=== PATIENT | female | born 1965 | race Caucasian/White ===

== ENCOUNTER 2018-03-15 10:57 | Outpatient (RCR) | payer OTHER, SELFPAY | END 2018-03-25 23:59 | LOC: NS 10:57 | PROVIDERS: Family Provider Family Medicine; PCP Family Medicine; Visit Provider Family Medicine | DX: E66.9 Obesity, unspecified (principal); Z68.21 Body mass index [BMI] 21.0-21.9, adult; Z71.3 Dietary counseling and surveillance | CPT/HCPCS: 97802 ==

== ENCOUNTER 2018-04-12 08:50 | Outpatient (RCR) | payer OTHER, SELFPAY | END 2018-04-25 23:59 | LOC: NS 08:50 | PROVIDERS: Family Provider Family Medicine; PCP Family Medicine; Visit Provider Family Medicine | DX: E66.9 Obesity, unspecified (principal); Z68.21 Body mass index [BMI] 21.0-21.9, adult; Z71.3 Dietary counseling and surveillance | CPT/HCPCS: 97802; 97803 ==

== ENCOUNTER 2018-04-26 09:26 | Outpatient (RCR) | payer OTHER, SELFPAY | END 2018-05-25 23:59 | LOC: NS 09:26 | PROVIDERS: Family Provider Family Medicine; PCP Family Medicine; Visit Provider Family Medicine | DX: E66.9 Obesity, unspecified (principal); Z68.21 Body mass index [BMI] 21.0-21.9, adult; Z71.3 Dietary counseling and surveillance | CPT/HCPCS: 97803 ==

== ENCOUNTER 2018-06-21 09:32 | Outpatient (RCR) | payer OTHER, SELFPAY | END 2018-06-25 23:59 | LOC: NS 09:32 | PROVIDERS: Family Provider Family Medicine; PCP Family Medicine; Visit Provider Family Medicine | DX: E66.9 Obesity, unspecified (principal); Z68.21 Body mass index [BMI] 21.0-21.9, adult; Z71.3 Dietary counseling and surveillance | CPT/HCPCS: 97803 ==

== ENCOUNTER 2018-07-26 09:30 | Outpatient (RCR) | payer OTHER, SELFPAY | END 2018-07-26 23:59 | LOC: NS 09:30 | PROVIDERS: Family Provider Family Medicine; PCP Family Medicine; Visit Provider Family Medicine | DX: E66.9 Obesity, unspecified (principal); Z68.21 Body mass index [BMI] 21.0-21.9, adult; Z71.3 Dietary counseling and surveillance | CPT/HCPCS: 97803 ==

== ENCOUNTER 2018-08-23 08:18 | Outpatient (RCR) | payer OTHER, SELFPAY | END 2018-08-25 23:59 | LOC: NS 08:18 | PROVIDERS: Family Provider Family Medicine; PCP Family Medicine; Visit Provider Family Medicine | DX: E66.9 Obesity, unspecified (principal); Z68.21 Body mass index [BMI] 21.0-21.9, adult; Z71.3 Dietary counseling and surveillance | CPT/HCPCS: 97803 ==

== ENCOUNTER 2018-09-13 10:00 | Outpatient (RCR) | payer OTHER, SELFPAY | END 2018-09-25 23:59 | LOC: NS 10:00 | PROVIDERS: Family Provider Family Medicine; PCP Family Medicine; Referring Provider Family Medicine; Visit Provider Family Medicine | DX: E66.9 Obesity, unspecified (principal); Z68.21 Body mass index [BMI] 21.0-21.9, adult; Z71.3 Dietary counseling and surveillance | CPT/HCPCS: 97803 ==

== ENCOUNTER 2018-09-27 10:20 | Outpatient (RCR) | payer OTHER, SELFPAY | END 2018-10-25 23:59 | LOC: NS 10:20 | PROVIDERS: Family Provider Family Medicine; PCP Family Medicine; Referring Provider Family Medicine; Visit Provider Family Medicine | DX: E66.9 Obesity, unspecified (principal); Z68.29 Body mass index [BMI] 29.0-29.9, adult; Z71.3 Dietary counseling and surveillance | CPT/HCPCS: 97803 ==

== ENCOUNTER 2018-11-01 09:34 | Outpatient (RCR) | payer OTHER, SELFPAY | END 2018-11-01 11:47 | disposition home or self-care (01) | LOC: NS 09:34 | PROVIDERS: Family Provider Family Medicine; PCP Family Medicine; Referring Provider Family Medicine; Visit Provider Family Medicine | DX: E66.9 Obesity, unspecified (principal); Z68.29 Body mass index [BMI] 29.0-29.9, adult; Z71.3 Dietary counseling and surveillance | CPT/HCPCS: 97803 ==

== ENCOUNTER 2019-01-03 07:25 | Day surgery (SDC) | payer OTHER, SELFPAY ==
[2019-01-03] VITALS (12 sets, daily range): BP systolic 90–121; BP diastolic 64–103; PULSE 61–79; RESP 16–18; TEMP 36.3–36.9; O2SAT 97–100; BMI 27.9
--- NOTE | 2019-01-03 08:53 | PCM.HP.STD ---
Problem List (1) Screening for intestinal cancer Status: Acute History of Present Illness Date of Admission: 01/03/19 The patient is a 53 year old F rating for intestinal cancer. She has never had a previous colonoscopy. No current symptoms. No bright red blood per rectum or melena. She enjoys good health. There is no family history of colon cancer. She has a sister who developed ulcerative colitis in her college years. Past Medical History Allergies No Known Allergies Allergy (Verified 12/30/18 15:31) Home Medications: Ambulatory Orders Medication Instructions Recorded Zolpidem Tartrate [Ambien 5 mg PO QHS PRN PRN 12/30/18 (Generic)] Smoking Status: Never smoker Review of Systems Constitutional: Denies: Anorexia HEENT: Denies: Difficulty Swallowing Cardiovascular: Denies: Chest Pain Respiratory: Denies: Cough Gastrointestinal: Denies: Abdominal Pain, Hematochezia Endocrine: Denies: Change in Body Habitus VTE Information - Inpt Only VTE Present on Admission: No Patient Problems: Active and Suspected Problems Screening for intestinal cancer (Acute) - Physical Exam General: Alert, Oriented x3, Cooperative, No apparent distress HEENT: Atraumatic Oral: Moist Mucosa Lungs: Clear to auscultation Cardiovascular: Regular rate, Regular Rhythm Abdomen: Bowel Sounds Present, Soft, Non Tender Psych/Mental Status: Normal Affect Vital Signs Temp Pulse Resp BP Pulse Ox 98.5 F 75 16 104/65 97 01/03/19 07:45 01/03/19 07:45 01/03/19 07:45 01/03/19 07:45 01/03/19 07:45 Oxygen Delivery Method Room Air Weight: 148 lb Body Mass Index (BMI) 27.9 Assessment/Plan All Active Problems Screening for intestinal cancer (Acute) I am recommending the patient a colonoscopy with possible biopsy or polypectomy as indicated. She is aware of the technique, benefits, risks and alternatives. She has had an opportunity to ask and have questions answered. She presents via our open access program. We will proceed as noted. Yohan Sanchez M.D., F.A.C.S.
--- NOTE | 2019-01-03 09:19 | OP.ENDO_ITS ---
Patient Name: Reanna Suarez Procedure Date: 01/03/2019 8:43 AM Date of : 1965 Age: 53 Procedure: Colonoscopy Indications: Screening for colorectal malignant neoplasm Providers: Yohan Sanchez MD Referring MD: Yohan Sanchez MD Medicines: Midazolam 4 mg IV, Meperidine 100 mg IV Patient Profile: Last Colonoscopy: none. The patient's first colonoscopy is today. Complications: No immediate complications. Procedure: Pre-Anesthesia Assessment: - Prior to the procedure, a History and Physical was performed, and patient medications and allergies were reviewed. The patient's tolerance of previous anesthesia was also reviewed. The risks and benefits of the procedure and the sedation options and risks were discussed with the patient. All questions were answered, and informed consent was obtained. Prior Anticoagulants: The patient has taken no previous anticoagulant or antiplatelet agents. ASA Grade Assessment: II - A patient with mild systemic disease. After reviewing the risks and benefits, the patient was deemed in satisfactory condition to undergo the procedure. After I obtained informed consent, the scope was passed under direct vision. Throughout the procedure, the patient's blood pressure, pulse, and oxygen saturations were monitored continuously. The Colonoscope was introduced through the anus and advanced to the cecum, identified by appendiceal orifice and ileocecal valve. The colonoscopy was performed without difficulty. The patient tolerated the procedure well. The quality of the bowel preparation was excellent. The ileocecal valve and the appendiceal orifice were photographed. Moderate Sedation: Moderate (conscious) sedation was personally administered by the endoscopist. The following parameters were monitored: oxygen saturation, heart rate, blood pressure, and response to care. Total physician intraservice time was 15 minutes. Scope In: 9:01:22 AM Scope Withdrawal Time 0 hours 6 minutes 29 seconds Scope Out: 9:14:57 AM Total Procedure Duration Time 0 hours 13 minutes 35 seconds Findings: Hemorrhoids were found on perianal exam. A few diverticula were found in the sigmoid colon. The exam was otherwise without abnormality. Impression: - Hemorrhoids found on perianal exam. - Diverticulosis in the sigmoid colon. - The examination was otherwise normal. - No specimens collected. Recommendation: - Discharge patient to home. - Resume previous diet. - Continue present medications. - Repeat colonoscopy in 10 years for screening purposes. Procedure Code(s): --- Professional --- 51079, Colonoscopy, flexible; diagnostic, including collection of specimen(s) by brushing or washing, when performed (separate procedure) 21844, 59, Moderate sedation services provided by the same physician or other qualified health life care planner performing the diagnostic or therapeutic service that the sedation supports, requiring the presence of an independent trained observer to assist in the monitoring of the patient's level of consciousness and physiological status; initial 15 minutes of intraservice time, patient age 5 years or older Diagnosis Code(s): --- Professional --- Z12.11, Encounter for screening for malignant neoplasm of colon K64.9, Unspecified hemorrhoids K57.30, Diverticulosis of large intestine without perforation or abscess without bleeding CPT copyright 2017 [employer]. All rights reserved. The codes documented in this report are preliminary and upon lawn care technician review may be revised to meet current compliance requirements. Yohan Sanchez MD 01/03/2019 9:18:41 AM This report has been signed electronically. Number of Addenda: 0 Note Initiated On: 01/03/2019 8:43 AM
== END 2019-01-03 10:54 | disposition home or self-care (01) ==
LOC: EN 07:28 → AC 07:29
PROVIDERS: Family Provider Family Medicine; PCP Family Medicine; Referring Provider Surgery; Visit Provider Surgery
PROC: 0DJD8ZZ Inspection of Lower Intestinal Tract, Via Natural or Artificial Opening Endoscopic (ICD-10-PCS; CPT 45378; principal; 2019-01-03 08:25)
DX: Z12.11 Encounter for screening for malignant neoplasm of colon (principal); K64.9 Unspecified hemorrhoids; K57.30 Diverticulosis of large intestine without perforation or abscess without bleeding
CPT/HCPCS: 45378; 99152; 99153; J7120

== ENCOUNTER → 2019-03-07 14:04 | Outpatient (CLI) | payer OTHER, SELFPAY ==
[2019-01-03 07:45] VITALS: BMI 27.9
[2019-03-12 12:54] LABS: HPV Reflexed? NOT INDICATED
== END ==
PROVIDERS: Visit Provider Obstetrics & Gynecology
DX: Z12.4 Encounter for screening for malignant neoplasm of cervix (principal)
CPT/HCPCS: 88175; G0145

== ENCOUNTER → 2020-12-10 12:19 | Outpatient (CLI) | payer OTHER, SELFPAY ==
[2019-01-03 07:45] VITALS: BMI 27.9
--- NOTE | 2020-12-10 12:22 | BI_ITS ---
MAMMOGRAPHY - BILATERAL SCREENING REASON FOR EXAM: Female, 55 years old. Routine annual screening examination. PERTINENT HISTORY: Aunt with breast cancer. TECHNIQUE: Digital bilateral breast jennifer (3D mammographic acquisition) in the CC and MLO projections. 2-D mediolateral oblique (MLO) and craniocaudad (CC) views of both breasts were obtained. CAD: Full Field Digital Mammography with Computer Added Detection was performed. COMPARISON: Comparison is made with prior outside examination of 07/28/2016. FINDINGS: Breast Composition: The breasts are heterogeneously dense, which may obscure small masses. There are no dominant masses or suspicious calcifications. No other significant abnormalities are identified. There has been no significant change since the prior study. BI/SCRN MAMM (CAD)W/JENNIFER BILAT IMPRESSION: Stable bilateral screening mammogram. Yearly follow-up mammogram recommended. (A) ASSESSMENT CATEGORY: BIRADS Category 1: Negative. A letter regarding these results will be sent to the patient by the facility within 30 days. Approximately 10% of breast cancers are not detected by mammography. A normal mammogram should not delay biopsy of a clinically suspicious abnormality. [id number] Electronically Signed: Drew Gaming, at 13:46 EST , Service support ,
== END ==
PROVIDERS: PCP Family Medicine; Referring Provider Obstetrics & Gynecology; Visit Provider Obstetrics & Gynecology
DX: Z12.31 Encounter for screening mammogram for malignant neoplasm of breast (principal)
CPT/HCPCS: 77063; 77067

== ENCOUNTER → 2021-07-01 10:30 | Outpatient (CLI) | payer OTHER, SELFPAY ==
[2019-01-03 07:45] VITALS: BMI 27.9
[2021-07-01 12:06] LABS: Erythrocyte Sedimentation Rate < 1 mm/hr (0-30)
[2021-07-01 12:08] LABS: Absolute Lymphocyte Count 1.48 X10^3/uL (0.83-4.51); Absolute Neutrophil Count 2.6 X10^3/uL (2.0-7.7); Basophil# 0.04 X10^3/uL; Basophil% 0.9 % (0-1); Eosinophil# 0.03 X10^3/uL; Eosinophils% 0.7 % (0-5); Hematocrit 42.2 % (37-47); Hemoglobin 14.2 g/dL (12.0-15.0); Lymphocyte # 1.48 X10^3/ul (0.83-4.51); Lymphocyte % 32.2 % (19-41); Mean Corp Hgb Conc 33.6 g/dL (32-36); Mean Platelet Vol. 9.8 fl (6.2-12.0); Monocyte# 0.44 X10^3/uL; Monocyte% 9.6 % (0-10); NRBC Flagged by Analyzer 0 % (0-5); Neutrophil # 2.59 X10^3/uL (2.7-7.7); Neutrophil % 56.4 % (47-70); Platelet Count 253 K/mm3 (150-450); RBC Distribution Width CV 12.2 % (11.6-14.6); RBC Distribution Width SD 40.2 fl (35.1-43.9); Red Blood Count 4.74 M/mm3 (4.2-5.4); White Blood Count 4.6 K/mm3 (4.4-11.0)
[2021-07-01 12:27] LABS: ALB/GLOB Ratio 1.3 RATIO (0.9-2.4); AST(SGOT) 13 U/L (15-37); Alanine Aminotransfer ALT/SGPT 22 U/L (13-56); Albumin, Serum 4.2 g/dL (3.2-5.0); Alkaline Phosphatase 48 U/L (45-117); Anion Gap 7 (5-15); BUN 16 mg/dL (7-18); BUN/Creat Ratio 18.9 RATIO (10-20); Calcium,Total 9.1 mg/dL (8.5-10.1); Chloride 102 mmol/L (98-107); Cholesterol 218 mg/dL (200); Creatinine, Serum 0.85 mg/dL (0.55-1.02); EST Glomerular Filtration Rate 74 mL/min (>60); Est Glom Filt Rate - Afr Amer 90 mL/min (>60); Globulin 3.2 g/dL (2.2-4.2); Glucose 88 mg/dL (74-106); High Density Lipoprotein 66 mg/dL; Potassium 4.1 mmol/L (3.5-5.1); Protein, Total 7.4 g/dL (6.4-8.2); Sodium Level 137 mmol/L (136-145); Thyroid Stim Hormone (TSH) 1.01 uIU/mL (0.358-3.74); Triglycerides 66 mg/dL; Very Low Density Lipoprotein 13 mg/dL (5-40)
== END ==
PROVIDERS: PCP Family Medicine; Visit Provider Family Medicine
DX: Z00.00 Encounter for general adult medical examination without abnormal findings (principal); R63.4 Abnormal weight loss
CPT/HCPCS: 36415; 80053; 80061; 84443; 85025; 85652

== ENCOUNTER → 2022-05-04 | Outpatient (CLI) | payer BC, SELFPAY ==
--- NOTE | 2022-05-04 10:24 | MRI_ITS ---
STUDY: MRI CERVICAL SPINE WITHOUT CONTRAST REASON FOR EXAM: Female, 56 years old. neuritis, loss of function L index finger TECHNIQUE: Standardized fat and water weighted pulse sequences were obtained in the sagittal and axial planes. COMPARISON: X-ray 04/14/2022 FINDINGS: Normal foramen magnum and brainstem-cervical cord junction. Normal craniovertebral junction. Normal anterior atlantoaxial articulation. Normal odontoid process. Normal cervical lordosis. Normal vertebral bodies and posterior osseous elements. C2-3: Normal endplates. Normal disc height, signal and morphology. Normal central canal and intervertebral neural foramina. C3-4: 2 mm retrolisthesis of C3 on C4 with a mild broad disc osteophyte complex produces moderate spinal stenosis with abutment of the central spinal cord and moderate bilateral neural foraminal stenosis. C4-5: Moderate broad disc osteophyte complex produces moderate spinal stenosis with abutment of the central spinal cord and moderate bilateral neural foraminal stenosis. C5-6: Moderate bilobed disc osteophyte complex produces moderate spinal stenosis with abutment of the right hemicord, moderate right neural foraminal stenosis and mild left neural foraminal stenosis. C6-7: Mild broad disc osteophyte complex produces mild spinal stenosis and mild bilateral neural foraminal stenosis. C7-T1: Mild broad disc osteophyte complex produces mild spinal stenosis and mild bilateral neural foraminal stenosis. Normal cervical cord. Normal visualized soft tissue structures. MRI/Spine Cervical (Routine) IMPRESSION: Multilevel degenerative changes, as described above. Electronically Signed: Medardo Dover MD at 12:21 EDT ,
== END | disposition home or self-care (01) ==
PROVIDERS: PCP Family Medicine; Visit Provider Orthopaedic Surgery
DX: M79.2 Neuralgia and neuritis, unspecified (principal)
CPT/HCPCS: 72141

== ENCOUNTER → 2022-05-08 | Outpatient (CLI) | payer BC, SELFPAY ==
--- NOTE | 2022-05-08 16:07 | NEURO_ITS ---
NCS and/or EMG Patient Report Ordering Doctor: Martin Sin DATE OF SERVICE: 05/08/22 Indication: Left hand weakness for approximately 6 weeks. Symptoms began with a sharp pain between the shoulder blades that would radiate down the left upper extremity. Since that time the pain has improved. No clearly associated sensory disturbance. Findings: Nerve conduction studies were performed in the left upper extremity. The left median motor study recording the abductor pollicis brevis showed a reduced amplitude, normal distal latency and normal conduction velocity. The left ulnar motor study recording the abductor digiti minimi showed a reduced amplitude, normal distal latency and normal conduction velocity. No conduction block or focal slowing was present across the elbow. The left median sensory response recording digit two showed a normal amplitude, latency and conduction velocity. The left ulnar sensory response recording digit five showed a normal amplitude, latency and conduction velocity. The left radial sensory response recording over the extensor snuff box showed a normal amplitude, latency and conduction velocity. As the sensory symptoms of a C8-T1 radiculopathy are similar to those of ulnar neuropathy and lower trunk brachial plexopathy, additional studies were performed to help exclude these. The left medial antebrachial cutaneous sensory response showed a normal amplitude and conduction velocity. Needle EMG of the left upper extremity and cervical paraspinal muscles was performed. Active denervation was seen in abductor pollicis brevis muscle. Insertional activity in the abductor digiti minimi was increased. All motor unit morphology and activation patterns were normal. Recruitment was markedly reduced in the abductor pollicis brevis and slightly reduced in the abductor digiti minim. Impression: This is an abnormal study, but somewhat limited study. There are electro physiologic findings most consistent with a subacute, left, C8/T1 radiculopathy preferentially affecting the fascicles destined to the median nerve distribution. The normal sensory responses would also favor an intraspinal localization. The lack of active denervation in the paraspinal muscles is unusual, but could be explained by a lesion sparing the dorsal ramus of the ventral root. Clinical and/or radiographic correlation is recommended. Finally, there is no evidence of a superimposed median or ulnar entrapment neuropathy in the left upper extremity. Chivo Chapman D.O. Multi Select Codes Neurology Neurology Interp Codes: 08409-84 Musc test done w/n test comp (interp) and 35354-66 Nrv cndj test 7-8 studies (interp)
== END | disposition home or self-care (01) ==
LOC: PSN 14:13
PROVIDERS: PCP Family Medicine; Referring Provider Orthopaedic Surgery; Visit Provider Orthopaedic Surgery
DX: M79.2 Neuralgia and neuritis, unspecified (principal)
CPT/HCPCS: 95886; 95910

== ENCOUNTER 2022-06-28 13:30 | Outpatient (RCR) | payer BC, SELFPAY ==
--- NOTE | 2022-04-10 08:33 | HP.OTEVAL ---
Patient's Visit Information EMA SMITH is a 56 year old F, referred to Occupational Therapy by Dr. Pretty Cleveland MD, with a diagnosis of Left shoulder pain. Date of Evaluation: 04/07/22 Occupational Therapist: Karina Dumont, OTR/L, CHT - Subjective Pt. is a 56 y/o female who arrived for L UE arm pain and numbness. Pt. reported that she did not do anything out of the ordinary the day before pain started. Started bothering her Sunday03-20-22, 2 weeks ago. Used a heating pad and could not function, saw on 03-21-22 felt coming out of her trap/cervical area, L finger not working correctly. She was prescribed neurotin, has taken some. Pt. reporting that she used compensatory strategies, but arm function is still not where it should be. Dr. Rodriguez referred pt. to Dr. Sin. - ADLs Kitchen: Open jars Household: Vacuum, Laundry Yard: Mow lawn Comments: uses a push mower Comments: Pt. reporting she has been using compensatory strategies with daily tasks and that she is R hand dominant. 2 handed tasks have been affected. recovering from knee surgery. son & pt. doing yard work. pt. going on vacation around . - Pain Left Elbow 0 Pain Intensity Range: 7 - ROM Shoulder: B WFL Elbow: B WFL Forearm: B WFL ROM Comments: All ROM is WFL. Can complete finger opposition - Strength Shoulder: R 20.5# L 15.3# Elbow: R 16.4# L 14.4# Wrist: R 11.4# L 8.6# Supportive Employment Case Manager: R 55.5# L 20# Lateral Pinch: R 12# L4# Tripod Pinch: R 12# L 3# Tip-to-Tip Pinch: R 6# L 0# Strength Comments: Used the Mini FET for strength testing. L side has notable deficits - Sensation Thumb: L & R 3.22 Index: L 2.83 R 3.22 Middle: L & R 2.83 Ring: R 2.83 L 3.22 Little: L & R 3.22 Sensation Comments: pt. reported some numbness in L hand & that her L hand feels cold some of the time. - Nine Hole Peg Right: 22.40 Left: 36.23 Comments: L hand was 14 seconds slower than right hand - Special Tests Elbow Flexion Test - Cubital Tunnel: negative - Quick DASH-Disab of Arm,Shoulder& Hand Quick DASH Score: 47.7250 - Goals Goal:: Pt. will increase L wrist strength from 8.6# to 10# to increase independence with sticker operator by dc. Pt. to increase L pinch (lateral, tripod, pinch) strength by 4# to increase independence with FM tasks during ADL's by dc. pt will demo a increase in left campus wellness coordinator by 20# or greater by d/c to increase functional strength for ADls and IADLS. Goal:: Pt. to improve with 9-hole peg test by 10 seconds (from 36.23 to 26) to increase indep with meal prep tasks by dc. Goal:: Pt. to verbalize use of 3 ergonomic/body worker changes for proper lifting and carrying of objects by dc. Goal:: Pt. to improve independence with UB/LB dressing using both hands by dc. - Rehabilitation General Assessment: Pt. has a diagnosis of Left shoulder pain from Dr. Cleveland. Pt. reported that her pain started Sunday03-20-22, 2 weeks ago in her trap/cervical area, L fingers not working correctly. Pt. reporting that she been using compensatory strategies. CHT educated pt. on the radial nerve, location, and what it does. S/OT provided pt. with radial nerve glides HEP. Pt. has L handed weakness in campus wellness coordinator and pinch, decreased indep with 2 handed tasks and vacuuming & laundry. Benefit from skilled OT services 2x a week for 6 weeks to improve strength and decrease numbness. Pt. Demo'd understanding & agreeable to POC. Therapy session was directly supervised and doc. reviewed and approved by Karina Dumont OTR/L,CHT Rehabilitation Potential: Good - Anticipated Interventions A/AAROM/PROM, Strengthening, Joint Protection/Energy Conservation, Ergonomic Education, Home Program Other Interventions: provided pt. with radial nerve glides (reviewed and demonstrated). CHT educated pt. on radial nerve. - Visit Plan Frequency: 2x /Week Duration: 6 Weeks TEXT: Thank you for the opportunity to evaluate your patient. For Medicare and Medicare HMO plans, please review the plan of care and approve it. It will need to be FAXED BACK to us at [phone] for Medicare purposes. Please let me know if there are questions or concerns regarding this plan of care. Physician Signature: Date:
--- NOTE | 2022-06-28 15:55 | OTREVAL_ITS ---
Dr. Pretty Cleveland MD, It has been my pleasure to treat EMA SMITH over the last 3 visits for Left shoulder pain. Please see the progress note below for an update on the occupational therapy plan of care! Subjective: Pt states Dr. Rodriguez feels she should continue with her OT to get some strength back- pt reports compliance with her HEP but feels no change - had her nerve conduction study completed in April and asked this therapist to review the records- therapist did so- Objective/Function: L 25# retail loss prevention investigator, noted increase wrist extension to get the motion. L lat 0#. L tripod 0#. L tip 0#. Decline in strength in L hand since her initial eval - even with pts diligently working with her arm and hand-. EMG report/impression reviewed- appears involvement around C8/T1 and would benefit from PT for further assessment- this therapist conversed with physical therapy and did state this would be appropriate referral to them. if no changes with objective pt would benefit from further testing/evaluations neurologist etc. Plan Plan: EMG IMPRSSION pulled off study 05/08/22 please see detailed report in pts records. This is an abnormal study, but somewhat limited study. There are electrophysiologic findings most consistent with a subacute, left, C8/T1 radiculopathy preferentially affecting the fascicles destined to the median nerve distribution. The normal sensory responses would also favor an intraspinal localization. The lack of active denervation in the paraspinal muscles is unusual, but could be explained by a lesion sparing the dorsal ramus of the ventral root. Clinical and/or radiographic correlation is recommended. Finally, there is no evidence of a superimposed median or ulnar entrapment neuropathy in the left upper extremity. As EMG indicates no evidence of a superimposed median or ulnar entrapment neuropathy in left UE. rec'd Physical Therapy at this time to address C8/T1 regions- Pt does states in February she did wake up with pain in her neck region and the gave her medication that did help-and shortly after this noticed the weakness and continues to get weak. pt will cont. with forearm strengthening as able and finger ROM /strengthening as able. pt can contact OT anytime for new exercise- pt demo with questionable rehab potential- if needed custom splint to stabilize thumb and or adaptive equipment. Goals - Goals Patient Goals: Regain Strength, Decrease Pain, Improve Fine Motor Skills, Use Hand/Wrist/Arm Normally Again, Be More Independent in ADLS, Resume Former Household Responsibilities (Cooking,Cleaning,Yard, etc.) Goal:: Pt. will increase L wrist strength from 8.6# to 10# to increase independence with motor coach tour operator by dc. Pt. to increase L pinch (lateral, tripod, pinch) strength by 4# to increase independence with FM tasks during ADL's by dc. pt will demo a increase in left retail loss prevention investigator by 20# or greater by d/c to increase functional strength for ADls and IADLS. Goal:: Pt. to improve with 9-hole peg test by 10 seconds (from 36.23 to 26) to increase indep with meal prep tasks by dc. Goal:: Pt. to verbalize use of 3 ergonomic/body shop supervisor changes for proper lifting and carrying of objects by dc. Goal:: Pt. to improve independence with UB/LB dressing using both hands by dc. Anticipated Interventions Anticipated Interventions: A/AAROM/PROM, Strengthening, Joint Protection/Energy Conservation, Ergonomic Education, Home Program Other Interventions: provided pt. with radial nerve glides (reviewed and demonstrated). CHT educated pt. on radial nerve. Please do not hesitate to contact me at [phone] by phone or if you have questions or concerns regarding this new plan of care! Sincerely, Karina Dumont OTR/L, CHT
--- NOTE | 2022-09-27 12:52 | HP.OTDCSUM_ITS ---
It has been my pleasure to treat EMA SMITH under orders from Dr. Pretty Cleveland MD, for the diagnosis of Left shoulder pain for a total of 3 visit(s). Please see the following information for a summary of their discharge status. Objective/Function: L 25# masonry teacher, noted increase wrist extension to get the motion. L lat 0#. L tripod 0#. L tip 0#. Decline in strength in L hand since her initial eval - even with pts diligently working with her arm and hand-. EMG report/impression reviewed- appears involvement around C8/T1 and would benefit from PT for further assessment- this therapist conversed with physical therapy and did state this would be appropriate referral to them. if no changes with objective pt would benefit from further testing/evaluations neurologist etc. Patient Goals: Regain Strength, Decrease Pain, Improve Fine Motor Skills, Use Hand/Wrist/Arm Normally Again, Be More Independent in ADLS, Resume Former Household Responsibilities (Cooking,Cleaning,Yard, etc.) Goal:: Pt. will increase L wrist strength from 8.6# to 10# to increase independence with scientific publications editor by dc. Pt. to increase L pinch (lateral, tripod, pinch) strength by 4# to increase independence with FM tasks during ADL's by dc. pt will demo a increase in left masonry teacher by 20# or greater by d/c to increase functional strength for ADls and IADLS. Goal:: Pt. to improve with 9-hole peg test by 10 seconds (from 36.23 to 26) to increase indep with meal prep tasks by dc. Goal:: Pt. to verbalize use of 3 ergonomic/assembler body changes for proper lifting and carrying of objects by dc. Goal:: Pt. to improve independence with UB/LB dressing using both hands by dc. Plan: EMG IMPRSSION pulled off study 05/08/22 please see detailed report in pts records. This is an abnormal study, but somewhat limited study. There are electrophysiologic findings most consistent with a subacute, left, C8/T1 radiculopathy preferentially affecting the fascicles destined to the median nerve distribution. The normal sensory responses would also favor an intraspinal localization. The lack of active denervation in the paraspinal muscles is unusual, but could be explained by a lesion sparing the dorsal ramus of the ventral root. Clinical and/or radiographic correlation is recommended. Finally, there is no evidence of a superimposed median or ulnar entrapment neuropathy in the left upper extremity. As EMG indicates no evidence of a superimposed median or ulnar entrapment neuropathy in left UE. rec'd Physical Therapy at this time to address C8/T1 regions- Pt does states in February she did wake up with pain in her neck region and the drZachary gave her medication that did help-and shortly after this noticed the weakness and continues to get weak. pt will cont. with forearm strengthening as able and finger ROM /strengthening as able. pt can contact OT anytime for new exercise- pt demo with questionable rehab potential- if needed custom splint to stabilize thumb and or adaptive equipment. If there are questions or concerns regarding this patient's occupational therapy, please fell free to call me at [phone]. Thank you for the referral of this patient. Sincerely, Karina Dumont, ALBAR/L, CHT
== END 2022-06-28 19:00 | disposition home or self-care (01) ==
LOC: OT 13:30
PROVIDERS: PCP Family Medicine; Referring Provider Family Medicine; Visit Provider Family Medicine
DX: M25.512 Pain in left shoulder (principal)
CPT/HCPCS: 97110; 97166; 97530

== ENCOUNTER 2023-07-06 17:50 | Outpatient (CLI) | payer BC, SELFPAY ==
[2023-07-13 10:13] LABS: HPV HC, High Risk Negative
== END 2023-07-06 23:59 | disposition home or self-care (01) ==
LOC: LABSPEC 17:51
PROVIDERS: PCP Family Medicine; Visit Provider Family Medicine
DX: Z12.4 Encounter for screening for malignant neoplasm of cervix (principal)
CPT/HCPCS: 87624; 88175; G0145

== ENCOUNTER → 2023-08-15 | Outpatient (CLI) | payer BC, SELFPAY ==
--- NOTE | 2023-08-15 09:13 | BI_ITS ---
MAMMOGRAPHY - BILATERAL SCREENING REASON FOR EXAM: Female, 57 years old. Routine annual screening examination. PERTINENT HISTORY: Aunt with breast cancer. TECHNIQUE: Digital bilateral breast jennifer (3D mammographic acquisition) in the CC and MLO projections. 2-D mediolateral oblique (MLO) and craniocaudad (CC) views of both breasts were obtained. CAD: Full Field Digital Mammography with Computer Added Detection was performed. COMPARISON: Comparison is made with prior study dated December 10, 2020 and April 02, 2014. FINDINGS: Breast Composition: The breasts are heterogeneously dense, which may obscure small masses. There are no dominant masses or suspicious calcifications. Stable benign appearing bilateral axillary lymph nodes. No other significant abnormalities are identified. There has been no significant change since the prior study. BI/SCRN MAMM (CAD)W/JENNIFER BILAT IMPRESSION: Stable bilateral screening mammogram. Yearly follow-up mammogram recommended. (A) ASSESSMENT CATEGORY: BIRADS Category 2: Benign. A letter regarding these results will be sent to the patient by the facility within 30 days. Approximately 10% of breast cancers are not detected by mammography. A normal mammogram should not delay biopsy of a clinically suspicious abnormality. [id number] Electronically Signed: Drew Gaming MD at 11:24 EDT ,
== END | disposition home or self-care (01) ==
LOC: OPBI 09:12
PROVIDERS: PCP Family Medicine; Referring Provider Family Medicine; Visit Provider Family Medicine
DX: Z12.31 Encounter for screening mammogram for malignant neoplasm of breast (principal)
CPT/HCPCS: 77063; 77067

== ENCOUNTER → 2024-08-08 | Outpatient (CLI) | payer BC, SELFPAY ==
[2024-08-08 10:22] LABS: Absolute Lymphocyte Count 1.41 X10^3/uL (0.83-4.51); Absolute Neutrophil Count 2.4 X10^3/uL (2.0-7.7); Basophil# 0.04 X10^3/uL; Basophil% 0.9 % (0-1); Eosinophil# 0.04 X10^3/uL; Eosinophils% 0.9 % (0-5); Lymphocyte # 1.41 X10^3/ul (0.83-4.51); Lymphocyte % 33.1 % (19-41); Mean Corpuscular Hgb 30.4 pg (27.0-32.0); Mean Platelet Vol. 9.6 fl (6.2-12.0); Monocyte# 0.39 X10^3/uL; Monocyte% 9.2 % (0-10); NRBC Flagged by Analyzer 0 % (0-5); Neutrophil # 2.38 X10^3/uL (2.7-7.7); Neutrophil % 55.9 % (47-70); Platelet Count 205 K/mm3 (150-450); RBC Distribution Width SD 38.4 fl (35.1-43.9); White Blood Count 4.3 K/mm3 (4.4-11.0)
[2024-08-08 11:35] LABS: Anion Gap 5 (5-15); BUN 15 mg/dL (7-18); BUN/Creat Ratio 17.9 RATIO (10-20); Calcium,Total 9.2 mg/dL (8.5-10.1); Chloride 107 mmol/L (98-107); Cholesterol 225 mg/dL (200); Creatinine, Serum 0.84 mg/dL (0.55-1.02); EST Glomerular Filtration Rate 74 mL/min (>60); Est Glom Filt Rate - Afr Amer 90 mL/min (>60); Glucose 97 mg/dL (74-106); High Density Lipoprotein 56 mg/dL; Sodium Level 138 mmol/L (136-145); Triglycerides 129 mg/dL; Very Low Density Lipoprotein 26 mg/dL (5-40)
== END | disposition home or self-care (01) ==
LOC: MTLAB 08:17
PROVIDERS: PCP Family Medicine; Referring Provider Registered Nurse; Visit Provider Registered Nurse
DX: R53.83 Other fatigue (principal)
CPT/HCPCS: 36415; 80048; 80061; 84443; 85025

== ENCOUNTER → 2025-06-12 | Outpatient (CLI) | payer BC, SELFPAY ==
--- NOTE | 2025-06-12 16:24 | RAD_ITS ---
PROCEDURE: CERV SPINE 2 OR 3 VIEWS 06/12/2025 REASON FOR EXAM: CERIVCAL TECHNIQUE: CERV SPINE 2 OR 3 VIEWS COMPARISON: Cervical spine x-ray dated 04/14/2022 and cervical spine MRI dated 05/04/2022. FINDINGS: Diffuse osteopenia of the cervical spine is noted. Mild degenerative changes of the cervical spine are noted. There is 2 mm of retrolisthesis of C3 in relationship to C4. There is 3 mm of retrolisthesis of C4 in relationship to C5. There is 2 mm of retrolisthesis of C5 in relationship to C6. There is disc space narrowing involving the C3-C4, C4-C5, C5-C6, C6-C7 and C7-T1 disc spaces. There is a decrease in height of the anterior aspect of the C7 vertebral body by approximately 3% which is a stable finding. This is compatible with a probable osteoporotic compression fracture. The dens and lateral masses are somewhat obscured by normal overlapping anatomical structures. The visualized portions appear unremarkable. RAD/Cerv Spine 2 or 3 Views IMPRESSION: Degenerative disc disease is seen involving the C3-C4, C4-C5, C5-C6, C6-C7 and C7-T1 disc spaces. Stable decrease in height of the anterior aspect of the C7 vertebral body by ap proximately 3%. Reading Location: [id number]
[2025-06-12 17:52] LABS: Hematocrit 41.7 % (37-47); Hemoglobin 14.3 g/dL (12.0-15.0); Immature Granulocytes Count 0.020 X10^3/uL (0.0-0.0); Mean Corp Hgb Conc 34.3 g/dL (32-36); Mean Corpuscular Volume 87.2 fL (81-99); Mean Platelet Vol. 9.8 fl (6.2-12.0); NRBC Flagged by Analyzer 0 % (0-5); Platelet Count 267 K/mm3 (150-450); RBC Distribution Width CV 12.3 % (11.6-14.6); RBC Distribution Width SD 39.2 fl (35.1-43.9); Red Blood Count 4.78 M/mm3 (4.2-5.4); White Blood Count 8.3 K/mm3 (4.4-11.0)
[2025-06-12 18:49] LABS: AST(SGOT) 18 U/L (<=31); Alanine Aminotransfer ALT/SGPT 13 U/L (<=34); Albumin, Serum 4.6 g/dL (3.5-5.0); Alkaline Phosphatase 63 U/L (35-104); Anion Gap 12 (5-15); BUN 18 mg/dL (4-19); BUN/Creat Ratio 20.2 RATIO (10-20); Calcium,Total 9.7 mg/dL (7.6-11.0); Carbon Dioxide 24.1 mmol/L (21.0-32.0); Chloride 102 mmol/L (98-108); Globulin 2.5 g/dL (2.2-4.2); Glucose 83 mg/dL (70-99); Potassium 4.0 mmol/L (3.3-5.1); Vitamin B12 581 pg/mL (180-914); Vitamin D,25 Hydroxy 19.0 ng/mL (30-100)
== END | disposition home or self-care (01) ==
LOC: MTLAB 16:22
PROVIDERS: PCP Family Medicine; Referring Provider Family Medicine; Visit Provider Family Medicine
DX: M54.12 Radiculopathy, cervical region (principal); R53.83 Other fatigue
CPT/HCPCS: 36415; 72040; 80053; 82306; 82607; 84439; 84443; 85025

== ENCOUNTER → 2025-09-25 | Outpatient (CLI) | payer BC, SELFPAY | END | disposition home or self-care (01) | LOC: SL 12:59 | PROVIDERS: PCP Family Medicine; Referring Provider Nurse Practitioner Family; Visit Provider Nurse Practitioner Family | DX: G47.10 Hypersomnia, unspecified (principal) | CPT/HCPCS: 95806 ==

== ENCOUNTER → 2025-10-23 | Outpatient (CLI) | payer BC, SELFPAY ==
--- OUTSIDE RECORDS SUMMARY | 2025-10-23 13:55 | XMS RPT_ITS | CCD ---
Author Organization [facility] CliniSywa Care Team Providers Care Environmental Health Aide Name Role Phone Dr. Pretty Cleveland Primary Care Provider Dr. Pretty Cleveland Referring Provider [phone] Dr. Yohan Hansen Attending Provider Dr. Martin Sin Attending Provider Dr. Cleveland Guerrero Attending Provider Dr. Martin Sin Referring Provider [phone] Martin Sin Other Provider [phone] Prem Chapman Attending Provider Dr. Pretty Cleveland Primary Care Provider Dr. Pretty Cleveland Referring Provider Dr. Martin Sin Attending Provider Dr. Praneeth Mcmahon MD Primary Care Provider [phone] Lisandro HELM, Dr. Praneeth Gustafson Attending Provider Lisandro HELM, Dr. Praneeth Gustafson Referring Provider [phone] James SNOW TECHNICIAN-CChristina Attending Provider Praneeth Mcmahon Primary Care Unavailable Christina Ramirez Attending Unavailable Christina Ramirez Referring Unavailable Praneeth Mcmahon Referring Unavailable Praneeth Mcmahon Primary Care Unavailable Praneeth Mcmahon Attending Unavailable Praneeth Mcmahon Attending Unavailable Praneeth Mcmahon Referring Unavailable Praneeth Mcmahon Primary Care Unavailable Pretty Cleveland Primary Care Unavailable Cristofer Pretty S Referring Unavailable Brandon Irby Attending Unavailable Praneeth Mcmaohn Referring Unavailable Christina Ramirez Attending Unavailable Praneeth Mcmahon Primary Care Unavailable Medications Current Medications Medication Drug Class(es) Dates Sig (Normalized) Sig (Original) acetaminophen 500 mg oral tablet (7 sources) Start: 04-14-2022 take 2 tablets by mouth every six hours as needed Acetaminophen (Tylenol Extra Strength) 500 mg tablet Active 1000 mg PO EVERY 6 HOURS as needed April 14, 2022 12:00am cetirizine hydrochloride 10 mg oral tablet (1 source) Histamine-1 Receptor Antagonist Start: 07-31-2025 take 1 tablet by mouth once daily Cetirizine (Zyrtec) 10 mg tablet Active 10 mg PO daily July 31, 2025 12:00am FLUoxetine 20 mg oral capsule (7 sources) Serotonin Reuptake Inhibitor Start: 04-14-2022 Fluoxetine 20 mg capsule Active NMA PO April 14, 2022 12:00am Start: 04-14-2022 Fluoxetine Act armando CAP PO April 14, 2022 12:00am gabapentin 100 mg oral capsule (20 sources) Anti-epileptic Agent Start: 04-14-2022 End: 05-10-2022 take 1-3 capsules by mouth three times daily as needed Gabapentin 100 mg capsule Active 0 PO .COMPLEX May 10, 2022 9:19am 1-3 caps by mouth tid as needed Start: 04-14-2022 End: 05-10-2022 Gabapentin 100 mg capsule Di scontinued NMA PO April 14, 2022 12:00am May 10, 2022 9:19am ibuprofen 200 mg oral tablet (7 sources) Nonsteroidal Anti-inflammatory Drug Start: 04-14-2022 take 2 tablets by mouth every six hours as needed Ibuprofen (Advil) 200 mg tablet Active 400 mg PO EVERY 6 HOURS as needed April 14, 2022 12:00am zolpidem tartrate 10 mg oral tablet (8 sources) gamma-Aminobutyric Acid-ergic Agonist Start: 07-31-2025 take 5 mg by mouth at bedtime Zolpidem 10 mg tablet Active 5 mg PO AT BEDTIME July 31, 2025 12:00am Start: 12-30-2018 End: 07-31-2025 take 1 tablet by mouth at bedtime as needed for sleep Zolpidem 5 MG tablet Discontinued 5 mg PO AT BEDTIME NEEDED as needed for Sleep December 30, 2018 1:00am July 31, 2025 1:02pm Completed/Discontinued Medications Medication Drug Class(es) Dates Sig (Normalized) Sig (Original) amoxicillin 875 mg / clavulanate 125 mg oral tablet (2 sources) Penicillin-class Antibacterial Start: 10-31-2024 End: 11-10-2024 Amoxicillin-Pot Clavulanate 875-125 mg tablet Discontinued 1 {tbl} PO Q12H 20 10 0 October 31, 2024 1:00am November 09, 2024 1:00am November 10, 2024 1:08am Acute sinusitis, unspecified tobramycin 3 mg/ml ophthalmic solution (2 sources) Aminoglycoside Antibacterial Start: 02-11-2024 End: 07-31-2025 Tobramycin 0.3 % drops Discontinued 1 NMA OPHTHALMIC Q2H 5 0 February 11, 2024 12:00am July 31, 2025 1:02pm to affected eye while awake first 24 hours, then 3x/day on days 2-5 Problems Problem Classification Problem Date Documented Date Episodic/Chronic Inflammation; infection of eye (except that caused by tuberculosis or sexually transmitteddisease) (2 sources) Unspecified acute conjunctivitis, bilateral; Translations: [Acute conjunctivitis of both eyes] 02-11-2024 Episodic Mood disorders (6 sources) Depressive disorder; Translations: [Depression] 05-10-2022 Chronic Other connective tissue disease (7 sources) Pain in left arm; Translations: [Pain in left arm] 04-14-2022 Episodic Other connective tissue disease (7 sources) Inflammatory neuropathy ; Translations: [Neuralgia and neuritis, unspecified] 04-14-2022 Episodic Other connective tissue disease (2 sources) Pain in left arm; Translations: [Pain in limb] Episodic Other connective tissue disease (4 sources) Neuralgia and neuritis, unspecified; Translations: [Neuralgia, neuritis, and radiculitis, unspecified] Episodic Other lower respiratory disease (7 sources) Cough; Translations: [Cough] 08-04-2021 Episodic Other screening for suspected conditions (not mental disorders or infectious disease) (7 sources) Patient encounter status; Translations: [Encounter for screening for malignant neoplasm of intestinal tract, unspecified] 01-03-2019 Episodic Other upper respiratory infections (2 sources) Acute sinusitis; Translations: [Acute sinusitis, unspecified] 10-31-2024 Episodic Residual codes; unclassified (2 sources) Daytime hypersomnia; Translations: [Hypersomnia, unspecified] 08-07-2025 Chronic Comment on above: STOP BANG= Residual codes; unclassified (1 source) Hypersomnia, unspecified; Translations: [Hypersomnia, unspecified] Onset: 09-25-2025 Chronic Spondylosis; intervertebral disc disorders; other back problems (2 sources) Radiculopathy, cervical region; Translations: [Radiculopathy, cervical region] Onset: 06-16-2025 Episodic Results Test Name Value Interpretation Reference Range Facility Pulmonary Visit Reporton Pulmonary Visit Report [facility] [place] [address] [place] [address] OFFICE VISIT Date of Service: 08/07/25 MR#: [id number] Acct: [id number] Name: REANNA SMITH Rep #: [id number] : 1965 Provider: Christina Ramirez NP Age/Sex: 59/F Location[place] [facility] Status: Signed Assessment and Plan Assessment and Plan (1) Daytime hypersomnia: Status: Acute Comment: STOP BANG= 3 Plan: The pathophysiology of sleep apnea was discussed with patient today. She is at high risk for sleep disordered breathing. I believe that these events could be occurring in REM sleep versus supine positioning due to the clusters of desaturations seen on the recent nocturnal oximetry. I have recommended an in lab sleep study at this time due to the risk for sleep apnea and the nocturnal hypoxemia that has been identified. Due to the patient's history of intermittent insomnia I have recommended that she utilize Sonata 5 mg as needed for the night of the sleep testing. If the patient should need this medication then the junior technical writer should perform a mini neuro evaluation prior to releasing the patient in the morning. The patient will follow-up in this practice in a 3-month interval and at that time we will have completed the sleep study and if positive will have been set up on PAP therapy and use the device so that a compliance download and her response to therapy can be reviewed on the follow-up. The patient is agreeable to this plan. All questions were answered today. Follow-up will need to be advanced if there is absence of sleep disordered breathing on the study. (2) Nocturnal hypoxemia: Status: Acute Plan: Nocturnal hypoxemia is present in the absence of known pulmonary disease. I highly suspect that this is due to sleep disordered breathing and have recommended a PSG. If the patient is found to have sleep apnea then a nocturnal pulse oximetry should be repeated once she has been set up on therapy to ensure that she has a adequate oxygenation status throughout the night with treatment. (3) Insomnia: Status: Acute Qualifiers: Insomnia type: unspecified Qualified Code(s): G47.00 - Insomnia, unspecified Plan: I discussed the correlation between insomnia and sleep disordered breathing. Await set up with PAP therapy if sleep testing suggest sleep disordered breathing and determine if this improves insomnia. Stimulus control techniques were discussed, specifically getting out of bed if it has been 30 minutes and she has not been able to fall asleep in going to a quiet location where she can read or perform a quiet activity until she becomes tired and then return to the bed. Orders: Orders Polysomnography Today G47.10 - Hypersomnia, unspecified Plan This note was generated with [employer] software. It may contain incorrect words, spelling, and punctuation that were not noted in checking the note before signing. Plan Details Follow Up: 3 Months (LMR) HPI HPI Comments Details: Patient is a 59-year-old female who presents today to establish for concerns for sleep disordered breathing. She is ambulatory and currently on room air. Her PCP is Dr. Mcmahon. She did undergo a nocturnal oximetry June 25, 2025 which showed an average saturation of 92.9% but there were 22 minutes below 88% and this did occur in clusters. Her father from emphysema in June 2024. Her paternal grandmother had emphysema. She has not history of chronic bronchitis or pneumonia. She is a lifelong non-smoker. There is no family history of sleep apnea. She does have a history of intermittent insomnia. She does have Ambien that she uses as needed through the years. She reports that she has difficulty with sleep onset specifically. Occasionally she will have an active mind but other times that is not present. She does utilize caffeine and will consume 2 to 3 cups for the entire day up until 1 to 2 PM. 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 She awakens with headaches. She does take a nap 3-4 days a week. She has been less tired in the past month since she has begun a walking regimen with her . Mood is controlled. STOP-BANG Assessment: 1. Do you snore? [Y] 2. Are you frequently tired during the day? [Y] 3. Have you been observed gasping or choking while asleep? [N] 4. Do you have high blood pressure? [N] 5. BMI - greater than 35kg/m2? [N] 6. Age - over 50 years old? [Y] 7. Neck Circumference - greater than 37 cm for females or 40 cm for males? [36cm, N] 8. Gender - male? [N] Total STOP-BANG score = [3] which indicates [high] risk for obstructive sleep apnea (yes to 3 or more questions = high risk of sleep apnea). Intake Vital Signs 10/31/24 12:02 08/07/25 06:21 Height 5 ft 1 in 5 ft 1 in Weight: 153 lb BMI 28.9 BP 103/68 (more content not included)... Normal [facility] Absolute lymphocyte countOrd ered By: Praneeth Mcmahon on 06-12-2025 Lymphocytes Auto (Unsp spec) [#/Vol] 2.29 10*3/uL 0.83-4.51 [facility] Absolute neutrophil countOrd ered By: Praneeth Mcmahon on 06-12-2025 Neutrophils (Bld) [#/Vol] 5.3 10*3/uL 2.0-7.7 [facility] Anion gap in Serum or Plasma Ordered By: Praneeth Mcmahon on 06-12-2025 Anion gap [Moles/Vol] 12 mmol/L 5-15 [facility] Automated lymphocyte count a s percentage of total leukocytesOrdered By: Praneeth Mcmahon on 06-12-2025 Lymphocytes/100 WBC Auto (Unsp spec) 27.7 % 19-41 [facility] BUN/creatinine ratioOrdered By: Praneeth Mcmahon on 06-12-2025 Urea nitrogen/Creatinine [Mass ratio] 20.2 mg/mg High 10-20 [facility] Basophil percentageOrdered B y: Praneeth Mcmahon on 06-12-2025 Basophils/100 WBC (Bld) 0.7 % 0-[address] [facility] Bilirubin, totalOrdered By: Praneeth Mcmahon on 06-12-2025 Bilirubin [Mass/Vol] 0.19 mg/dL 0.00-1.30 [facility] CBC W/Diff, Automatedon 05-26 Absolute Lymph 2.29 X10 3/uL Normal 0.83-4.51 [facility] Comment on above: Order Comment: Order Date: 06/12/25 Order Info: 0184-1 - CBCD Performed By: #### L 500.4050, L506.0400, L100.0100, [id number] #### [facility] Laboratory [address] [place], [address] Absolute Neut 5.3 X10 3/uL Normal 2.0-7.7 [facility] Comment on above: Order Comment: Order Date: 06/12/25 Order Info: 018- - CBCD Performed By: #### L 500.4050, L506.0400, L100.0100, [id number] #### [facility] [address] [place], [address] Basophils/100 WBC (Bld) 0.7 % Normal 0-[address] [facility] Comment on above: Order Comment: Order Date: 06/12/25 Order Info: 018-1 - CBCD Performed By: #### L 500.4050, L506.0400, L100.0100, [id number] #### [facility] [address] [place], [address] Eosinophils/100 WBC (Bld) 0.6 % Normal 0-5 [facility] Comment on above: Order Comment: Order Date: 06/12/25 Order Info: 0184-1 - CBCD Performed By: #### L 500.4050, L506.0400, L100.0100, [id number] #### [facility] [address] [place], [address] Erythrocyte distribution width (RBC) [Ratio] 12.3 % Normal 11.6-14.6 [facility] Comment on above: Order Comment: Order Date: 06/12/25 Order Info: 0184-1 - CBCD Performed By: #### L 500.4050, L506.0400, L100.0100, [id number] #### [facility] [address] [place], [address] Hematocrit (Bld) [Volume fraction] 41.7 % Normal 37-47 [facility] Comment on above: Order Comment: Order Date: 06/12/25 Order Info: 0184- - CBCD Performed By: #### L 500.4050, L506.0400, L100.0100, [id number] #### [facility] [address] [place], [address] Hemoglobin (Bld) [Mass/Vol] 14.3 g/dL Normal 12.0-15.0 [facility] Comment on above: Order Comment: Order Date: 06/12/25 Order Info: 0184- - CBCD Performed By: #### L 500.4050, L506.0400, L100.0100, [id number] #### [facility] [address] [place], [address] IG% 0.200 Normal 0.0-0.9 [facility] Comment on above: Order Comment: Order Date: 06/12/25 Order Info: 0184-1 - CBCD Result Comment: IG% - Immature Granulocytes (promyelocytes, myelocytes and metamyelocytes) > 1% indicates that a LEFT SHIFT is Present. Performed By: #### L 500.4050, L506.0400, L100.0100, [id number] #### [facility] [address] [place], [address] Lymphocytes/100 WBC (Bld) 27.7 % Normal 19-41 [facility] Comment on above: Order Comment: Order Date: 06/12/25 Order Info: 0184- - CBCD Performed By: #### L 500.4050, L506.0400, L100.0100, [id number] #### [facility] [address] [place], [address] MCH (RBC) [Entitic mass] 29.9 pg Normal 27.0-32.0 [facility] Comment on above: Order Comment: Order Date: 06/12/25 Order Info: 0184-1 - CBCD Performed By: #### L 500.4050, L506.0400, L100.0100, [id number] #### [facility] [address] [place], [address] MCHC (RBC) [Mass/Vol] 34.3 g/dL Normal 32-36 [facility] Comment on above: Order Comment: Order Date: 06/12/25 Order Info: 0184- - CBCD Performed By: #### L 500.4050, L506.0400, L100.0100, [id number] #### [facility] [address] [place], [address] MCV (RBC) [Entitic vol] 87.2 fL Normal 81-99 [facility] Comment on above: Order Comment: Order Date: 06/12/25 Order Info: 0184- - CBCD Performed By: #### L 500.4050, L506.0400, L100.0100, [id number] #### [facility] [address] [place], [address] Monocytes/100 WBC (Bld) 7.1 % Normal 0-10 [facility] Comment on above: Order Comment: Order Date: 06/12/25 Order Info: 0184-1 - CBCD Performed By: #### L 500.4050, L506.0400, L100.0100, [id number] #### [facility] [address] [place], [address] Neutrophils/100 WBC (Bld) 63.7 % Normal 47-70 [facility] Comment on above: Order Comment: Order Date: 06/12/25 Order Info: 0184-1 - CBCD Performed By: #### L 500.4050, L506.0400, L100.0100, L501.9520 #### [facility] [address] [place], [address] Nucleated RBC (Bld) [#/Vol] 0 10*3/uL Normal 0-5 [facility] Comment on above: Order Comment: Order Date: 06/12/25 Order Info: 0184-1 - CBCD Performed By: #### L 500.4050, L506.0400, L100.0100, L501.9520 #### [facility] [address] [place], [address] Platelet mean volume (Bld) [Entitic vol] 9.8 fL Normal 6.2-12.0 [facility] Comment on above: Order Comment: Order Date: 06/12/25 Order Info: 0184- - CBCD Performed By: #### L 500.4050, L506.0400, L100.0100, L501.9520 #### [facility] [address] [place], [address] Platelets (Bld) [#/Vol] 267 10*3/uL Normal 150-450 [facility] Comment on above: Order Comment: Order Date: 06/12/25 Order Info: 0184-1 - CBCD Performed By: #### L 500.4050, L506.0400, L100.0100, L501.9520 #### [facility] [address] [place], [address] RBC (Bld) [#/Vol] 4.78 10*6/uL Normal 4.2-5.4 [facility] Comment on above: Order Comment: Order Date: 06/12/25 Order Info: 0184-1 - CBCD Performed By: #### L 500.4050, L506.0400, L100.0100, L501.9520 #### [facility] [address] [place], [address] RDW SD 39.2 fl Normal 35.1-43.9 [facility] Comment on above: Order Comment: Order Date: 06/12/25 Order Info: 0184-1 - CBCD Performed By: #### L 500.4050, L506.0400, L100.0100, L501.9520 #### [facility] [address] [place], [address] WBC (Bld) [#/Vol] 8.3 10*3/uL Normal 4.4-11.0 [facility] Comment on above: Order Comment: Order Date: 06/12/25 Order Info: 0184-1 - CBCD Performed By: #### L 500.4050, L506.0400, L100.0100, L501.9520 #### [facility] [address] [place], [address] Carbon dioxide, total [Moles /volume] in Central venous bloodOrdered By: Praneeth Mcmahon on 06-12-2025 CO2 [Moles/Vol] 24.1 mmol/L 21.0-32.0 [facility] Cerv Spine 2 or 3 Viewson Cerv Spine 2 or 3 Views [facility] [address] [place] [address] Cerv Spine 2 or 3 Views MR#: [id number] Acct: [id number] Name: REANNA SMITH Rep #: [id number] : 1965 F 59 From: Ag[facility] Yan PCP: Dr. Praneeth Mcmahon MD Status: REG CLI Study: Cerv Spine 2 or 3 Views Date of Exam: 06/12/25 Exam# [id number] Ordering Dr: Praneeth Mcmahon MD PROCEDURE: CERV SPINE 2 OR 3 VIEWS 06/12/2025 REASON FOR EXAM: CERIVCAL TECHNIQUE: CERV SPINE 2 OR 3 VIEWS COMPARISON: Cervical spine x-ray dated 04/14/2022 and cervical spine MRI dated 05/04/2022. FINDINGS: Diffuse osteopenia of the cervical spine is noted. Mild degenerative changes of the cervical spine are noted. There is 2 mm of retrolisthesis of C3 in relationship to C4. There is 3 mm of retrolisthesis of C4 in relationship to C5. There is 2 mm of retrolisthesis of C5 in relationship to C6. There is disc space narrowing involving the C3-C4, C4-C5, C5-C6, C6-C7 and C7-T1 disc spaces. There is a decrease in height of the anterior aspect of the C7 vertebral body by approximately 3% which is a stable finding. This is compatible with a probable osteoporotic compression fracture. The dens and lateral masses are somewhat obscured by normal overlapping anatomical structures. The visualized portions appear unremarkable. RAD/Cerv Spine 2 or 3 Views IMPRESSION: Degenerative disc disease is seen involving the C3-C4, C4-C5, C5-C6, C6-C7 and C7-T1 disc spaces. Stable decrease in height of the anterior aspect of the C7 vertebral body by approximately 3%. Reading Location: [facility] CC: Dr. Praneeth Mcmahon MD [employer] Hand: Signed Normal [facility] Chloride assayOrdered By: Debra Mcmahon on 06-12-2025 Chloride [Moles/Vol] 102 mmol/L 98-108 [facility] Comprehensive Metabolic Prof ilon 06-12-2025 Albumin [Mass/Vol] 4.6 g/dL Normal 3.5-5.0 [facility] Comment on above: Order Comment: Order Date: 06/12/25 Order Info: 0786-1 - CMP Order Info: 3016-3 - TSH Order Info: 3024-7 - T4F Performed By: #### L 500.4050, L506.0400, L100.0100, L501.9520 #### [facility] [address] [place], [place], [id number] Albumin/Globulin [Mass ratio] 1.9 {ratio} Normal 0.9-2.4 [facility] Comment on above: Order Comment: Order Date: 06/12/25 Order Info: 0786-1 - CMP Order Info: 6-3 - TSH Order Info: 3024-7 - T4F Performed By: #### L 500.4050, L506.0400, L100.0100, L501.9520 #### [facility] [address] [place], [address] ALK PHOS 63 U/L Normal 35-104 [facility] Comment on above: Order Comment: Order Date: 06/12/25 Order Info: 785-1 - CMP Order Info: 3 - TSH Order Info: 3024-7 - T4F Performed By: #### L 500.4050, L506.0400, L100.0100, L501.9520 #### [facility] [address] [place], [address] ALT [Catalytic activity/Vol] 13 U/L Normal <=34 [facility] Comment on above: Order Comment: Order Date: 06/12/25 Order Info: 07-1 - CMP Order Info: 6-3 - TSH Order Info: 3024-7 - T4F Performed By: #### L 500.4050, L506.0400, L100.0100, L501.9520 #### [facility] [address] [place], [address] AST [Catalytic activity/Vol] 18 U/L Normal <=31 [facility] Comment on above: Order Comment: Order Date: 06/12/25 Order Info: 0786-1 - CMP Order Info: 6-3 - TSH Order Info: 3024-7 - T4F Performed By: #### L 500.4050, L506.0400, L100.0100, L501.9520 #### [facility] [address] [place], [address] Bilirubin [Mass/Vol] 0.19 mg/dL Normal 0.00-1.30 [facility] Comment on above: Order Comment: Order Date: 06/12/25 Order Info: 0786-1 - CMP Order Info: 6-3 - TSH Order Info: 3024-7 - T4F Performed By: #### L 500.4050, L506.0400, L100.0100, L501.9520 #### [facility] [address] [place], [address] BUN/CRE 20.2 RATIO High 10-20 [facility] Comment on above: Order Comment: Order Date: 06/12/25 Order Info: 0786-1 - CMP Order Info: 6-3 - TSH Order Info: 3024-7 - T4F Performed By: #### L 500.4050, L506.0400, L100.0100, L501.9520 #### [facility] [address] [place], [address] Calcium [Mass/Vol] 9.7 mg/dL Normal 7.6-11.0 [facility] Comment on above: Order Comment: Order Date: 06/12/25 Order Info: 07-1 - CMP Order Info: 3016-3 - TSH Order Info: 3024-7 - T4F Performed By: #### L 500.4050, L506.0400, L100.0100, L501.9520 #### [facility] [address] [place], [address] Chloride [Moles/Vol] 102 mmol/L Normal 98-108 [facility] Comment on above: Order Comment: Order Date: 06/12/25 Order Info: 0786-1 - CMP Order Info: 6-3 - TSH Order Info: 3024-7 - T4F Performed By: #### L 500.4050, L506.0400, L100.0100, L501.9520 #### [facility] [address] [place], [address] CO2 [Moles/Vol] 24.1 mmol/L Normal 21.0-32.0 [facility] Comment on above: Order Comment: Order Date: 06/12/25 Order Info: 785-1 - CMP Order Info: 3015-3 - TSH Order Info: 3024-7 - T4F Performed By: #### L 500.4050, L506.0400, L100.0100, L501.9520 #### [facility] [address] [place], [address] Creatinine [Mass/Vol] 0.90 mg/dL Normal 0.70-1.20 [facility] Comment on above: Order Comment: Order Date: 06/12/25 Order Info: 785-11 - CMP Order Info: 3 - TSH Order Info: 7 - T4F Performed By: #### L 500.4050, L506.0400, L100.0100, L501.9520 #### [facility] [address] [place], [address] GAP 12 Normal 5-15 [facility] Comment on above: Order Comment: Order Date: 06/12/25 Order Info: 785-11 - CMP Order Info: 3 - TSH Order Info: 7 - T4F Performed By: #### L 500.4050, L506.0400, L100.0100, L501.9520 #### [facility] [address] [place], [address] GFR/1.73 sq M.predicted among non-blacks MDRD (S/P/Bld) [Vol rate/Area] 74 mL/min/{1.73_m2} Normal >60 [facility] Comment on above: Order Comment: Order Date: 06/12/25 Order Info: 0786-1 - CMP Order Info: 3016-3 - TSH Order Info: 3024-7 - T4F Result Comment: mL/m in/1.73m2 CKD-EPI Creatinine Equation (2020) Performed By: #### L 500.4050, L506.0400, L100.0100, L501.9520 #### [facility] [address] [place], [address] Globulin (S) [Mass/Vol] 2.5 g/dL Normal 2.2-4.2 [facility] Comment on above: Order Comment: Order Date: 06/12/25 Order Info: 0786-1 - CMP Order Info: 3 - TSH Order Info: 3027 - T4F Performed By: #### L 500.4050, L506.0400, L100.0100, L501.9520 #### [facility] [address] [place], [address] Glucose [Mass/Vol] 83 mg/dL Normal 70-99 [facility] Comment on above: Order Comment: Order Date: 06/12/25 Order Info: 0786- - CMP Order Info: 3 - TSH Order Info: 7 - T4F Performed By: #### L 500.4050, L506.0400, L100.0100, L501.9520 #### [facility] [address] [place], [address] Potassium [Moles/Vol] 4.0 mmol/L Normal 3.3-5.1 [facility] Comment on above: Order Comment: Order Date: 06/12/25 Order Info: 0786- - CMP Order Info: 3 - TSH Order Info: 3024-7 - T4F Performed By: #### L 500.4050, L506.0400, L100.0100, L501.9520 #### [facility] [address] [place], [address] Sodium [Moles/Vol] 138 mmol/L Normal 133-145 [facility] Comment on above: Order Comment: Order Date: 06/12/25 Order Info: 0786-1 - CMP Order Info: 3 - TSH Order Info: 3024-7 - T4F Performed By: #### L 500.4050, L506.0400, L100.0100, L501.9520 #### [facility] [address] [place], [address] T PROT 7.1 g/dL Normal 5.9-8.4 [facility] Comment on above: Order Comment: Order Date: 06/12/25 Order Info: 0786-1 - CMP Order Info: 3016-3 - TSH Order Info: 30247 - T4F Performed By: #### L 500.4050, L506.0400, L100.0100, L501.9520 #### [facility] [address] [place], [address] Urea nitrogen [Mass/Vol] 18 mg/dL Normal 4-19 [facility] Comment on above: Order Comment: Order Date: 06/12/25 Order Info: 0786-1 - CMP Order Info: 3016-3 - TSH Order Info: 3027 - T4F Performed By: #### L 500.4050, L506.0400, L100.0100, L501.9520 #### [facility] [address] [place], [address] Eosinophil percentageOrdered By: Praneeth Mcmahon on 06-12-2025 Eosinophils/100 WBC (Bld) 0.6 % 0-5 [facility] Erythrocyte distribution wid th ratioOrdered By: Praneeth Mcmahon on 06-12-2025 Erythrocyte distribution width (RBC) [Ratio] 12.3 % 11.6-14.6 [facility] Erythrocyte distribution wid th standard deviationOrdered By: Praneeth Mcmahon on 06-12-2025 Erythrocyte distribution width (RBC) [Ratio] 39.2 fl 35.1-43.9 [facility] Glomerular filtration rate ( GFR) estimation/1.73 sq m using serum, plasma, or whole bOrdered By: Praneeth Mcmahon on 06-12-2025 GFR/1.73 sq M.predicted among non-blacks MDRD (S/P/Bld) [Vol rate/Area] 74 mL/min/{1.73_m2} >60 [facility] Comment on above: mL/min/1.73m2 CKD-EP I Creatinine Equation (2020) Hematocrit Auto (Bld) [Volum e fraction]Ordered By: Praneeth Mcmahon on 06-12-2025 Hematocrit (Bld) [Volume fraction] 41.7 % 37-47 [facility] Hemoglobin measurementOrdere d By: Praneeth Mcmahon on 06-12-2025 Hemoglobin (Bld) [Mass/Vol] 14.3 g/dL 12.0-15.0 [facility] Immature granulocytes/100 WB C Auto (Bld)Ordered By: Praneeth Mcmahon on 06-12-2025 Immature granulocytes/100 WBC (Bld) 0.200 % 0.0-0.9 [facility] Comment on above: IG% - Immature Granu locytes (promyelocytes, myelocytes and metamyelocytes) > 1% indicates that a LEFT SHIFT is Present. Laboratory - Chemistry and C hemistry - challengeOrdered By: Praneeth Mcmahon on 06-12-2025 AST [Catalytic activity/Vol] 18 U/L <32 [facility] MCV (mean corpuscular volume ) determinationOrdered By: Praneeth Mcmahon on 06-12-2025 MCV (RBC) [Entitic vol] 87.2 fL 81-[address] [facility] Mean corpuscular hemoglobin (MCH) determinationOrdered By: Praneeth Mcmahon on 06-12-2025 MCH (RBC) [Entitic mass] 29.9 pg 27.0-32.0 [facility] Mean corpuscular hemoglobin concentration (MCHC) determinationOrdered By: Praneeth Mcmahon on 06-12-2025 MCHC (RBC) [Mass/Vol] 34.3 g/dL 32-36 [facility] Mean platelet volume determi nationOrdered By: Praneeth Mcmahon on 06-12-2025 Platelet mean volume (Bld) [Entitic vol] 9.8 fL 6.2-12.0 [facility] Monocyte percentageOrdered B y: Praneeth Mcmahon on 06-12-2025 Monocytes/100 WBC (Bld) 7.1 % 0-[address] [facility] Neutrophil percentageOrdered By: Praneeth Mcmahon on 06-12-2025 Neutrophils/100 WBC (Bld) 63.7 % 47-70 [facility] Nucleated red blood cell per centageOrdered By: Praneeth Mcmahon on 06-12-2025 Nucleated RBC/100 WBC (Bld) [Ratio] 0 % 0-5 [facility] Platelet countOrdered By: Debra Mcmahon on 06-12-2025 Platelets (Bld) [#/Vol] 267 10*3/uL 150-450 [facility] Potassium measurement (mass/ volume)Ordered By: Praneeth Mcmahon on 06-12-2025 Potassium (Unsp spec) [Mass/Vol] 4.0 mmol/L 3.3-5.1 [facility] RBC Auto (Bld) [#/Vol]Ordere d By: Praneeth Mcmahon on 06-12-2025 RBC (Bld) [#/Vol] 4.78 10*6/uL 4.2-5.4 [facility] Serum creatinine measurement (mass/volume)Ordered By: Praneeth Mcmahon on 06-12-2025 Creatinine [Mass/Vol] 0.90 mg/dL 0.70-1.20 [facility] Serum globulin measurementOr dered By: Praneeth Mcmahon on 06-12-2025 Globulin (S) [Mass/Vol] 2.5 g/dL 2.2-4.2 [facility] Serum glucose measurement (m ass/volume)Ordered By: Praneeth Mcmahon on 06-12-2025 Glucose [Mass/Vol] 83 mg/dL 70-99 [facility] Serum or plasma alanine mckinley otransferase (ALT) measurementOrdered By: Praneeth Mcmahon on 06-12-2025 ALT [Catalytic activity/Vol] 13 U/L <35 [facility] Serum or plasma albumin lee urement (mass/volume)Ordered By: Praneeth Mcmahon on 06-12-2025 Albumin [Mass/Vol] 4.6 g/dL 3.5-5.0 [facility] Serum or plasma albumin/glob ulin mass ratioOrdered By: Praneeth Mcmahon on 06-12-2025 Albumin/Globulin [Mass ratio] 1.9 {ratio} 0.9-2.4 [facility] Serum or plasma alkaline osvaldo sphatase measurementOrdered By: Praneeth Mcmahon on 06-12-2025 ALP [Catalytic activity/Vol] 63 U/L 35-104 [facility] Serum or plasma calcium lee urement (mass/volume)Ordered By: Praneeth Mcmahon on 06-12-2025 Calcium [Mass/Vol] 9.7 mg/dL 7.6-11.0 [facility] Serum or plasma urea nitroge n measurement (mass/volume)Ordered By: Praneeth Mcmahon on 06-12-2025 Urea nitrogen [Mass/Vol] 18 mg/dL 4-19 [facility] Sodium levelOrdered By: Praneeth Mcmahon on 06-12-2025 Sodium [Moles/Vol] 138 mmol/L 133-145 [facility] T4 Free Directon 06-12-2025 T4 FREE DIRECT 1.40 ng/dL Normal 0.76-1.46 [facility] Comment on above: Order Comment: Order Date: 06/12/25 Order Info: 0786-1 - CMP Order Info: 3016-3 - TSH Order Info: 30203-02 - T4F Performed By: #### L 500.4050, L506.0400, L100.0100, L501.9520 #### [facility] [address] [place], [place], [id number] T4 freeOrdered By: Praneeth gomez on 06-12-2025 Free T4 [Mass/Vol] 1.40 ng/dL 0.76-1.46 [facility] TSH DL <= 0.005 mIU/L QnOrde red By: Praneeth Mcmahon on 06-12-2025 TSH Qn 1.300 uIU/mL 0.300-4.200 [facility] Thyroid Stim Hormone (TSH)on 06-12-2025 TSH 1.300 uIU/mL Normal 0.300-4.200 [facility] Comment on above: Order Comment: Order Date: 06/12/25 Order Info: 0786-1 - CMP Order Info: 3016-3 - TSH Order Info: 30247 - T4F Performed By: #### L 500.4050, L506.0400, L100.0100, L501.9520 #### [facility] [address] [place], [place], [id number] Total proteinOrdered By: Otis Mcmahon on 06-12-2025 Protein [Mass/Vol] 7.1 g/dL 5.9-8.4 [facility] Vitamin B12on 06-12-2025 Cobalamin (Vitamin B12) [Mass/Vol] 581 pg/mL Normal 180-914 [facility] Comment on above: Order Comment: Order Date: 06/12/25 Order Info: 0786-1 - CMP Order Info: 3016-3 - TSH Order Info: 3024-05 - T4F Performed By: #### L 506.1001, L503.0106 #### [facility] [address] [place], [place], [id number] Vitamin B12 ser/plasOrdered By: Praneeth Mcmahon on 06-12-2025 Cobalamin (Vitamin B12) [Mass/Vol] 581 pg/mL 180-914 [facility] Vitamin D,25 Hydroxyon 06-12 Vitamin D 25-OH 19.0 ng/mL Low 30-100 [facility] Comment on above: Order Comment: Order Date: 06/12/25 Order Info: 0786-1 - CMP Order Info: [id number] - TSH Order Info: 3024-05 - T4F Result Comment: Shivani min D Status Deficiency: <20 ng/mL (50nmol/L) Insufficiency: 20-30 ng/mL (50-75 nmol/L) Sufficiency: 30-100 ng/mL (75-250 nmol/L) Toxicity: >100 ng/mL (>250 nmol/L) Performed By: #### L 506.1001, L503.0106 #### [facility] [address] [place], [place], [address] White blood cell (WBC) count Ordered By: Praneeth Mcmahon on 06-12-2025 WBC (Bld) [#/Vol] 8.3 10*3/uL 4.4-11.0 [facility] Urgent Care Visit Reporton 1 01-01-2024 Urgent Care Visit Report [facility] [address], [address] [place], [place] [address] OFFICE VISIT Date of Service: 10/31/24 MR#: [id number] Acct: [id number] Name: REANNA SMITH Rep #: [id number] : 1965 Provider: JACKELINE Vargas Age/Sex: 59/F Location: [facility] Status: Signed Intake Vital Signs 06/21/22 11:52 10/31/24 12:02 Height 5 ft 1 in 5 ft 1 in Weight: 153 lb 6 oz BMI 29.0 BP 102/60 Pulse 84 Temp 97.3 F L Temp Source Oral Pulse Oximetry (%) 97 Oxygen Delivery Method room air Intake Visit Reasons: CONCERN FOR SINUS INFECTION Accompanied by: Self Allergies No Known Allergies Allergy (Verified 10/31/24 12:07) Medications ???Medication ???Instructions ???Recorded ???Confirmed ???Type zolpidem 5 mg tablet 5 mg PO QHS PRN PRN Sleep 12/30/18 06/21/22 History acetaminophen 500 mg tablet 1,000 mg PO Q6H PRN 04/14/22 06/21/22 History (Tylenol Extra Strength) fluoxetine 20 mg capsule cap PO 04/14/22 10/31/24 History ibuprofen 200 mg tablet (Advil) 400 mg PO Q6H PRN 04/14/22 06/21/22 History gabapentin 100 mg capsule See Rx Instructions PO .COMPLEX 05/10/22 10/31/24 History tobramycin 0.3 % eye drops 1 drp ophthalmic (eye) Q2H #5 mL 02/11/24 02/11/24 Rx amoxicillin 875 mg-potassium 1 tab PO Q12H 10 days #20 tabs 10/31/24 10/31/24 Rx clavulanate 125 mg tablet Nurse's Note: patient started off with a cold on 10/13 and then the week of she started having sinus pressure on the rt side. Patient is still having sinus and a ST now. [facility] Medical History (Updated 10/31/24 @ 14:09 by Brandon VIVEROS, JACKELINE) Acute conjunctivitis of both eyes Depression Family History Aunt Myocardial infarction Brother Hypertension Social History Smoking Status: Never smoker HPI HPI Details: REANNA SMITH, is a 59 F who presents to the office today for complaint of sinus congestion/pressure and pain for the past 2 weeks. Patient denies hemoptysis, shortness of breath or difficulty breathing. No fever, chills, sweats. No nausea, vomiting, diarrhea. No loss of taste or smell. No other associated symptoms or alleviating/aggravat ing factors. ROS Const Constitutional: No other (as above) Exam Const General: cooperative and healthy appearing [facility] Head: normal to inspection Ears: hearing grossly normal bilaterally, TM's normal bilaterally and EAC's normal Nose: nasal discharge purulent Face and sinus: sinus tenderness frontal and maxillary Mouth: oral mucosae normal Throat: abnormal tonsil bilaterally erythema and hypertrophy 1+ and postnasal drainage Resp Effort Inspection: normal respiratory effort Auscultation: Bilateral: Clear to Auscultation Cardio Rate: regular rate Rhythm: regular rhythm Neuro General: patient alert Psych Appearance: grossly normal Mental Status: mental status grossly normal Coding Level of Care Code Off vis,est,level 3 Diagnoses Acute sinusitis J01.90 Assessment and Plan Assessment and Plan (1) Acute sinusitis: Status: Acute Medications: New amoxicillin-pot clavulanate 875-125 mg 1 TAB PO Q12H 20 tabs 0RF 10 days J01.90 - Acute sinusitis, unspecified Plan Augmentin as prescribed today. Encouraged to get plenty of rest, drink lots of clear liquids, and use Tylenol or Ibuprofen (unless contraindicated) for fever and comfort. Patient also educated on other symptomatic management techniques. To be seen in 7-10 days if no improvement; sooner if worsening of symptoms. Patient advised of potential red flags and when appropriate to report to the ED. Patient verbalized understanding and agreement with all the above. 10/31/24 1409 Date Brandon Graves Signature: Date (if applicable) CC: Normal [place] [facility] Cervical or vagninal specime n microscopic examination by cytology stain (reported asOrdered By: Pretty Cleveland on 07-06-2023 Cytology report Cyto stain Doc (Cvx/Vag) Comment . [facility] Comment on above: The Pap smear is a s creening test designed to aid in thedetection of premalignant and malignant conditions of theuterine cervix. It is not a diagnostic procedure andshould not be used as the sole means of detecting cervicalcancer. Both false-positive and false-negative reports dooccur. Detection in cervical specim en of any of human papilloma virus (HPV) 16, 18, 31, 33,Ordered By: Pretty Cleveland on 07-06-2023 HPV 16+18+31+33+35+39+45+51+ 52+56+58+59+68 DNA Probe+sig amp Ql (Cvx) Negative [facility] Laboratory - CytologyOrdered By: Pretty Cleveland on 07-06-2023 Statistics Professor Cyto stain Nom (Cvx/Vag) [ID] Comment . [facility] Comment on above: Andrews Hanley , Manager Heavy Duty (ASCP) Laboratory - Miscellaneous t estsOrdered By: Pretty Cleveland on 07-06-2023 Service comment (Unsp spec) [Interp] Comment . [facility] Comment on above: This liquid based Th inPrep(R) pap test was screened withthe use of an image guided system. Service comment (Unsp spec) [Interp] . . [facility] No Panel InformationOrdered By: Pretty Cleveland on 07-06-2023 Pathology report final diagnosis Narrative Comment . [facility] Comment on above: NEGATIVE FOR INTRAEP ITHELIAL LESION OR MALIGNANCY.CELLULAR CHANGES ASSOCIATED WITH ATROPHY ARE PRESENT. Laboratory - Microbiology an d Antimicrobial susceptibilityon 01-17-2022 SARS-CoV-2 (COVID-19) RNA FAVIO+probe Ql (Unsp spec) Not detected [facility] Work Phone: No Panel Informationon 01-17 Influenza Types A,B Rapid (Clinic) Not detected [facility] Work Phone: Vital Signs Date Time Vital Sign Value Performing Clinician Faci lity 08-07-2025 06:21-0400 Body mass index (BMI) [Ratio] 28.9 kg/m2 Dr. Praneeth Mcmahon MD Work Phone: [facility] 08-07-2025 06:21-0400 Body temperature 97.4 [degF] Dr. Praneeth Mcmahon MD Work Phone: [facility] 08-07-2025 06:21-0400 Body weight 69.[address] Praneeth Mcmahon MD Work Phone: [facility] 08-07-2025 06:21-0400 Diastolic blood pressure 68 mm[Hg] Dr. Praneeth Mcmahon MD Work Phone: [phone] [place] [address] 08-07-2025 06:21-0400 Heart rate 79 /min Dr. Praneeth Mcmahon MD Work Phone: [phone] [address] 08-07-2025 06:21-0400 Respiratory rate 18 /min Dr. Praneeth Mcmahon MD Work Phone: [phone] [place] [address] 08-07-2025 06:21-0400 SaO2% (BldA) [Mass fraction] 95 % Dr. Praneeth Mcmahon MD Work Phone: [facility] 08-07-2025 06:21-0400 Systolic blood pressure 103 mm[Hg] Dr. Praneeth Mcmahon MD Work Phone: [facility] 06-21-2022 11:52-0400 Body height 154.[address] Pretty Cleveland Work Phone: [facility] Work Phone: 06-21-2022 11:52-0400 Body mass index (BMI) [Ratio] 28.9 kg/m2 Dr. Pretty Cleveland Work Phone: [facility] Work Phone: 06-21-2022 11:52-0400 Body weight 69.[address] Pretty Cleveland Work Phone: [facility] Work Phone: 05-10-2022 09:18-0400 Body height 154.[address] Pretty Cleveland Work Phone: [facility] Work Phone: 05-10-2022 09:18-0400 Body mass index (BMI) [Ratio] 28.3 kg/m2 Dr. Pretty Cleveland Work Phone: [facility] Work Phone: 05-10-2022 09:18-0400 Body weight 68.[address] Pretty Cleveland Work Phone: [facility] Work Phone: 04-14-2022 09:11-0400 Body mass index (BMI) [Ratio] 28.3 kg/m2 Dr. Pretty Cleveland Work Phone: [facility] Work Phone: 04-14-2022 09:11-0400 Body weight 68.[address] Pretty Cleveland Work Phone: [facility] Work Phone: 04-14-2022 09:11-0400 Body height 154.[address] Pretty Cleveland Work Phone: [facility] Work Phone: 04-14-2022 09:11-0400 Body mass index (BMI) [Ratio] 28.3 kg/m2 Dr. Pretty Cleveland Work Phone: [facility] Work Phone: 04-14-2022 09:11-0400 Body weight 68.[address] Pretty Cleveland Work Phone: [facility] Work Phone: Encounters Encounter Date Encounter Type Care Provider Facility Start: 09-25-2025 ambulatory Praneeth Linda y:[facility] Start: 08-07-2025 End: 08-07-2025 Patient encounter procedure SNOW TECHNICIAN Christina Ramirez [facility] Work Phone: Start: 08-07-2025 End: 08-07-[address] Praneeth Mcmahon MD Work Phone: -[facility] Start: 06-12-2025 End: 06-12-[address] Praneeth Mcmahon MD Work Phone: -[facility] Start: 06-12-2025 End: 06-12-[address] Praneeth Mcmahon MD [facility] Work Phone: Start: 06-12-2025 End: 06-12-2025 ambulatory Praneeth Mcmahon Facility:[facility] Start: 10-31-2024 End: 10-31-2024 ambulatory Pretty Cleveland Facility:[facility] Start: 08-15-2023 End: 08-15-2023 ambulatory [facility] Work Phone: Start: 08-15-2023 End: 08-15-2023 Patient encounter procedure [facility]-Outpatient Breast Imaging Work Phone: Start: 07-06-2023 End: 07-06-2023 ambulatory [facility] Work Phone: Start: 07-06-2023 End: 07-06-2023 Patient encounter procedure [facility]-Laboratory, Specimen Work Phone: Start: 06-28-2022 End: 06-28-[address] Pretty Cleveland Work Phone: [facility] Work Phone: Start: 06-28-2022 End: 06-28-[address] Pretty Cleveland Work Phone: [facility]-Occupational Therapy Start: 06-21-2022 End: 06-21-[address] Pretty Cleveland Work Phone: [facility] Start: 05-10-2022 End: 05-10-[address] Pretty Cleveland Work Phone: [facility] Start: 05-08-2022 Non-patient / Non-visit Dr. Irina Cleveland Work Phone: [facility] Start: 05-08-2022 End: 05-08-[address] Pretty Cleveland Work Phone: [facility]-Pulmonary Services/Neurology Start: 05-04-2022 End: 05-04-[address] Pretty Cleveland Work Phone: [facility]-MRI - [facility] Start: 04-17-[address] Pretty rachel Work Phone: [facility] Start: 04-14-2022 End: 04-14-[address] Pretty lCeveland Work Phone: [facility] Start: 01-17-2022 End: 01-17-[address] Pretty [place] Work Phone: [facility] Procedures Date Procedure Procedure Detail Performing Clinician Start: 06-12-2025 Vitamin D, 25-hydrox y measurement Dr. Praneeth Mcmahon MD Work Phone: Comment on above: Vitamin D StatusDefi ciency: <20 ng/mL (50nmol/L)Insufficiency: 20-30 ng/mL (50-75 nmol/L)Sufficiency: 30-100 ng/mL (75-250 nmol/L)Toxicity: >100 ng/mL (>250 nmol/L) Start: 06-12-2025 X-ray of cervical spine Dr. Praneeth Mcmahon MD Work Phone: Start: 08-15-2023 Screening mammography Start: 05-04-2022 MRI of cervical spine [place] Work Phone: Start: 04-14-2022 X-ray of cervical spine Dr. Pretty [place] Work Phone: Plan of Treatment Date Care Activity Detail Author Human papilloma viru s 16+18+31+33+35+39+45+51+52+56+58+59+68 DNA [Presence] in Cervix by Probe with signal amplification [facility] Path report.final Dx Spec [facility] Polysomnography [facility] Immunizations Immunization Date Immunization Notes Care Provider Fa betty 09-28-2021 Milena (Moderna) Dr. Pretty wilson Work Phone: [facility] 09-07-2021 influenza, injectabl e, quadrivalent, preservative free [facility] 09-07-2021 influenza, seasonal, injectable Dr. Pretty [place] Work Phone: [facility] 12-21-2020 Covid (Moderna) Dr. Pretty wilson Work Phone: [facility] 11-23-2020 Covid (Moderna) Dr. Pretty wilson Work Phone: [facility] 09-01-2020 influenza, injectabl e, quadrivalent, preservative free [facility] 09-01-2020 influenza, seasonal, injectable Dr. Pretty [place] Work Phone: [facility] 10-20-2019 influenza, injectabl e, quadrivalent, preservative free [facility] 10-20-2019 influenza, seasonal, injectable Dr. Pretty [place] Work Phone: [facility] 10-25-2017 influenza, injectabl e, quadrivalent, preservative free [facility] 10-25-2017 influenza, seasonal, injectable Dr. Pretty [place] Work Phone: [facility] 09-28-2016 influenza, injectabl e, quadrivalent, preservative free [facility] 09-28-2016 influenza, seasonal, injectable Dr. Pretty [place] Work Phone: [facility] Payers Date Payer Category Payer Self-pay [id number] 2024 Unknown [id number] Private Health Insurance [id number] Unknown [id number] Unknown [id number] Unknown [id number] [id number] Unknown [id number] Unknown [id number] [id number] Social History Date Type Detail Facility Start: 04-14-2022 End: 06-21-2022 Tobacco smoking status DEIS Unknown if ever smoked [facility] Start: 1965 Sex Assigned At Female W [facility] Start: 02-11-2024 End: 07-31-2025 Tobacco smoking status NHIS Never smoked tobacco (finding) [facility] Radiology Diagnostic study note 06-13-2025 Note Date & Type Note Facility 06-13-2025 Radiology Diagnostic study note [facility] Imaging Services [address] [place] [address] [id number] Cerv Spine 2 or 3 Views MR#: [id number] Acct: [id number] Name: REANNA SMITH Rep #: [id number] : 1965 F 59 From: [place] DO PCP: Dr. Praneeth Mcmahon MD Status: RE G CLI Study:Cerv Spine 2 or 3 Views Date of Exam: 06/12/25 Exam# [id number] Ordering Dr: Praneeth Mcmahon MD PROCEDURE: CERV SPINE 2 OR 3 VIEWS 06/12/2025 REASON FOR EXAM: CERIVCAL TECHNIQUE: CERV SPINE 2 OR 3 VIEWS COMPARISON: Cervical spine x-ray dated 04/14/2022 and cervical spine MRI dated 05/04/2022. FINDINGS: Diffuse osteopenia of the cervical spine is noted. Mild degenerative changes ofthe cervical spine are noted. There is 2 mm of retrolisthesis of C3 in relationship to C4. There is 3 mm of retrolisthesis of C4 in relationship to C5. There is 2 mm of retrolisthesis of C5 in relationship to C6. There is disc space narrowing involving the C3-C4, C4-C5, C5-C6, C6-C7 and C7-T1disc spaces. There is a decrease in height of the anterior aspect of the C7 vertebral body byapproximately 3% which is a stable finding. This is compatible with a probable osteoporotic compression fracture. The dens and lateral masses are somewhat obscured by normal overlapping anatomical structures. The visualized portions appear unremarkable. RAD/Cerv Spine 2 or 3 Views IMPRESSION: Degenerative disc disease is seen involving the C3-C4, C4-C5, C5-C6, C6-C7 and C7-T1 disc spaces. Stable decrease in height of the anterior aspect of the C7 vertebral body by approximately 3%. Reading Location: [id number] CC: Dr. Praneeth Mcmahon MD ~ [employer] Hand: Signed [facility] Clinical Note 07-06-2023 Note Date & Type Note Facility 07-06-2023 Note [facility] Pap Smear Specimen Adequacy July 06, 2023 4:45pm Comment . Satisfactory for evaluation. Endocervical component may not bedistinguished in cases of atrophy. Comment on above: Satisfactory for linda luation. Endocervical component may not bedistinguished in cases of atrophy. Chief complaint+Reason for visit Narrative Note Date & Type Note Facility Chief complaint+Reason for v isit Narrative Reason for Visit Left arm pain Neuritis [facility] Work Phone: Chief complaint+Reason for visit Narrative Note Date & Type Note Facility Chief complaint+Reason for v isit Narrative Reason for Visit Left arm pain Neuritis Neuritis [facility] Work Phone: Evaluation note Note Date & Type Note Facility Evaluation note Diagnosis Onset Date Left arm pain acute Neuritis acute [facility] Work Phone: Evaluation note Note Date & Type Note Facility Evaluation note Diagnosis Onset Date Left arm pain acute Neuritis acute Neuritis acute [facility] Work Phone: Evaluation note Note Date & Type Note Facility Evaluation note Diagnosis Onset Date Neuritis acute [facility] Work Phone: Evaluation note Note Date & Type Note Facility Evaluation note No assessment information availa ble [facility] Work Phone: Evaluation note Note Date & Type Note Facility Evaluation note Diagnosis Onset Date Resolution Daytime hypersomnia acute Septe mber 2024 12:42pm [facility] Work Phone: Reason for referral (narrative) Note Date & Type Note Facility Reason for referral (narrative) No reason for referral information available [facility] Work Phone: Family History No Family History Records Found Relationship Condition Age at Onset Recorded Date/T kee aunt Myocardial infarction Unknown brother Hypertension Unknown Advance Directives No Advanced Directives Records Found Advance Directive Response Recorded Date/ Time Living Will Yes August 04 8:40am Power of Patient Relations Manager Yes August 04, 2021 8:40am Chief Complaint and Reason for Visit Chief Complaint CERVICAL SPINE SHLD PN L, ARM NUMBNESS PER PT/RX HERE Reason for Visit Neuritis Chief Complaint SCREENING Chief Complaint Admit Date Sleep apnea August 07, 2025 12:42pm Reason for Visit Admit Date Daytime hypersomnia August 07, 2025 12:42pm Summary Purpose Additional Source Comments Goals (unrecognized section and content) Goals may be documented in a n alternate sectionGoals may be documented in an alternate sectionGoals may be documented in an alternate sectionGoals may be documented in an alternate sectionGoals may be documented in an alternate sectionGoals may be documented in an alternate section Care Teams (unrecognized sec tion and content) Team Status: Active Member Role Status Dates Dr. Pretty [place] MD Primary Care Provider Active Team Status: Inactive Member Role Status Dates Dr. Pretty [place] MD Primary Care Provider, Attendin Provider Active Team Status: Inactive Member Role Status Dates Dr. Pretty [place] MD Primary Care Prov ider, Attending Provider, Referring Provider Active Team Status: Active Member Role/Relationship Status Dates Dr. Praneeth Mcmahon MD Primary Care Provider Active Team Status: Inactive Member Role/Relationship Status Dates Dr. Praneeth Mcmahon MD Primary Care Provider Active Start: June 12, 2025 End: June 12, 2025 Dr. Praneeth Mcmahon MD Attending Provider Active Start: June 12, 2025 End: June 12, 2025 Dr. Praneeth Mcmahon MD Referring Provider Active Start: June 12, 2025 End: June 12, 2025 Team Status: Inactive Member Role/Relationship Status Dates Dr. Praneeth Mcmahon MD Primary Care Provider Active Start: August 07, 2025 End: August 07, 2025 Dr. Praneeth Mcmahon MD Referring Provider Active Start: August 07, 2025 End: August 07, 2025 ELIN HernandezC Attending Provider Active Start: August 07, 2025 End: August 07, 2025 INFORMATION SOURCE (unrecogn ized section and content) DATE CREATED AUTHOR 09/27/2025 [facility] FOR RECORDS PERTAINING TO PATIENTS WHO ARE OR HAVE BEEN ENROLLED IN A CHEMICAL DEPENDENCY/SUBSTANCEABUSE PROGRAM, SOME INFORMATION MAY BE OMITTED. This clinical summary was aggregated from multiple sources. Caution should be exercised in using it in the provision of clinical care. This summary normalizes information from multiple sources, and as a consequence, information in this document may materially change the coding, format and clinical context of patient data. In addition, data may be omitted in some cases. CLINICAL DECISIONS SHOULD BE BASED ON THE PRIMARY CLINICAL RECORDS. [facility] provides no warranty or guarantee of the accuracy or completeness of information in this document.
== END | disposition home or self-care (01) ==
LOC: SL 13:53
PROVIDERS: PCP Family Medicine; Visit Provider Nurse Practitioner Family
DX: Z00.00 Encounter for general adult medical examination without abnormal findings (principal)